=== PATIENT | female | born 1960 | race Caucasian/White ===

== ENCOUNTER 2017-08-30 21:19 | Emergency (ER) | payer OTHER ==
[~2017-08-30 21:19] MED LIST changes: -CEPH500C24 PO; -LOR5/325 PO
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
[2017-08-30] MEDS ORDERED: fentaNYL CITR 100 MCG/2 ML AMP IVP ONE ×2 (21:35→22:40)
[2017-08-30] MEDS ORDERED: TETRACAIN/EPI/LIDO GEL 3ML SYR TP ONE ×2 (21:35→21:55)
[2017-08-30] MEDS ORDERED: BACITRACIN/POLYMY B OINT 3.5GM OU ONE (22:40)
[2017-08-30] MEDS ORDERED: ACET/HYDROC 5/325MG TH ER ONLY 2 TAB/BOTTLE PO ONE (23:15)
[2017-08-30] MEDS ORDERED: LOR5/325 PO (23:19)
[2017-08-30] MEDS ORDERED: CEPH500C24 PO (23:19)
[2017-08-30 23:30] VITALS: BP 95/55
== END 2017-08-31 00:11 | disposition home or self-care (01) ==
LOC: ER 21:22
DX: S01.81XA Laceration without foreign body of other part of head, initial encounter (principal); V87.8XXA Person injured in other specified noncollision transport accidents involving motor vehicle (traffic), initial encounter
CPT/HCPCS: 12011; 96374; 96376; 99283; J3010

== ENCOUNTER → 2017-08-30 | Outpatient (CLI) | payer OTHER, BC ==
[~2017-08-30] MED LIST: AMLO-104 PO; CEPH500C24 PO; LOR5 PO; LOR5/325 PO; ONDA4TAB PO; PAN40 PO; VITAMINS; [UNRECOGNIZED DRUG - CODE] MC
== END ==
LOC: AMB 21:04
PROVIDERS: ATTEND Nurse Practitioner
DX: M79.662 Pain in left lower leg (principal); T14.8XXA Other injury of unspecified body region, initial encounter; V29.9XXA Motorcycle rider (driver) (passenger) injured in unspecified traffic accident, initial encounter; Y92.414 Local residential or business street as the place of occurrence of the external cause; Z72.89 Other problems related to lifestyle
CPT/HCPCS: A0425; A0429

== ENCOUNTER → 2017-09-03 | Outpatient (CLI) | payer OTHER, BC ==
[~2017-09-03] MED LIST changes: +CEPH500C24 PO; +LOR5/325 PO
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
--- NOTE | 2017-09-03 16:49 | RADIOLOGY IMAGING REPORT ---
FACILITY: [facility] PATIENT NAME: Gabriela Holliday : 1960 MR: [id number] V: [id number] EXAM DATE: ORDERING PHYSICIAN: URSULA MATHEWS TECHNOLOGIST: Location: [facility] Patient: Gabriela Holliday : 1960 Visit/Account:[id number] Date of Sevice: 09/03/2017 2 Exam type: FOOT 2 VIEW LEFT History: Pain in left ankle and foot Comparison: None. Findings: Two views of the left foot demonstrate no evidence of acute fracture or dislocation. There is a smal l left calcaneal spur IMPRESSION: 1. No acute osteoarticular abnormality the left foot is seen Report Dictated By: Kristan Roberts MD at 09/03/2017 4:44 PM Report E-Signed By: Kristan Roberts MD at 09/03/2017 4:45 PM WSN:[email or web address]
== END ==
LOC: RAD 15:20
PROVIDERS: ATTEND Physician Assistant Medical
DX: M24.172 Other articular cartilage disorders, left ankle (principal); M77.32 Calcaneal spur, left foot

== ENCOUNTER 2017-09-24 12:36 | Emergency (ER) | payer BC, OTHER ==
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
[2017-09-24 13:07] LABS: PLATELET COUNT, AUTOMATED 226 K/uL (150-450)
--- NOTE | 2017-09-24 13:19 | EKG ---
FACILITY: [facility] PATIENT NAME: EVA ASHRAF : [id number] MR: [id number] V: [id number] EXAM DATE: ORDERING PHYSICIAN: SLICK WISE TECHNOLOGIST: CRISTINA Test Reason : DIZZINESS Blood Pressure : / mmHG Vent. Rate : 055 BPM Atrial Rate : 055 BPM P-R Int : 170 ms QRS Dur : 082 ms QT Int : 424 ms P-R-T Axes : 061 016 047 degrees QTc Int : 405 ms Sinus bradycardia Otherwise normal ECG No previous ECGs available Confirmed by ZARINA GARCIA ([id number]) on 09/25/2017 6:26:01 AM Referred By: BILLIE Confirmed By:ZARINA GARCIA
--- NOTE | 2017-09-24 13:59 | RADIOLOGY IMAGING REPORT ---
FACILITY: [facility] PATIENT NAME: Gabriela Holliday : 1960 MR: [id number] V: [id number] EXAM DATE: ORDERING PHYSICIAN: SLICK WISE TECHNOLOGIST: Location: [facility] [place] Patient: Gabriela Holliday : 1960 Visit/Account:[id number] Date of Sevice: 09/24/2017 Technique: CHEST PA AND LAT HISTORY: shortness of breath COMPARISON: None available Findings: The lungs are clear. No pleural effusion or pneumothorax. The cardiomediastinal silhouett e is normal. Impression: 1. No acute cardiopulmonary process. Report Dictated By: Jean Paul Concepcion DO at 09/24/2017 1:54 PM Report E-Signed By: Jean Paul Concepcion DO at 09/24/2017 1:56 PM WSN:[email or web address]
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
[2017-09-24] MEDS ORDERED: SCOPOLAMINE 1.5 MG PATCH TD ONE (14:55)
[2017-09-24] MEDS ORDERED: MECL25TA9 PO (14:57)
[2017-09-24] MEDS ORDERED: SCOP1PAT16 TD (14:57)
[2017-09-24 15:07] VITALS: BP 132/78
== END 2017-09-24 15:01 | disposition home or self-care (01) ==
LOC: ER 12:47
DX: S00.03XA Contusion of scalp, initial encounter (principal); R42 Dizziness and giddiness
CPT/HCPCS: 70450; 71046; 82040; 82247; 82310; 82374; 82435; 82565; 82947; 84075; 84132; 84155; 84295; 84450; 84460; 84520; 85025; 93005; 99284